=== PATIENT | female | born 1950 | race Caucasian/White ===

== ENCOUNTER 2020-11-27 14:27 | Emergency (ER) | payer SELFPAY ==
[2020-11-27 14:46] VITALS: BP 133/85; PULSE 74; TEMP 98.1; BMI 24.9
[2020-11-27] MEDS ORDERED: IBUPROFEN 600 MG TABLET (FP) PO ONE ×2 (15:37→15:43)
== END 2020-11-27 17:36 | disposition home or self-care (01) ==
LOC: JERFT 14:27
DX: S92.902A Unspecified fracture of left foot, initial encounter for closed fracture (principal)
CPT/HCPCS: 73610-TC-LT-FY; 73630-TC-LT; 99283-25